=== PATIENT | male | born 1960 | race Caucasian/White ===

== ENCOUNTER → 2020-09-07 | Outpatient (CLI) | payer BC, OTHER ==
--- NOTE | 2020-09-07 12:45 | REPPI ---
INDICATION: elevated PSA. COMPARISON: None. TECHNIQUE: Transrectal prostate ultrasound performed, with ultrasound guidance provided for Dr. Li who performed ultrasound-guided biopsy. FINDINGS: Prostate measures 3.8 x 2.6 x 4.8 cm, total volume 24.9 mL. Echotexture is heterogeneous with scattered cysts and calcifications. There is a 5 mm nodule in the right mid prostate. Seminal vesicles appear symmetrical. IMPRESSION: Prostate ultrasound as above, ultrasound guidance was provided for Dr. Li who performed ultrasound-guided biopsy of the prostate. <Electronically signed by Orestes Santana > 09/07/20 [id number]
== END ==
LOC: M SMT PRO 10:25
PROVIDERS: ATTEND Urology
DX: C61 Malignant neoplasm of prostate (principal)
CPT/HCPCS: 55700; 76872; 76942; 88341; 88342; G0416

== ENCOUNTER → 2020-10-22 | Outpatient (CLI) | payer BC, OTHER ==
[~2020-10-22] MED LIST: ACET325C5 PO; CIAL2.5T PO; LIVA1TAB PO; LOPR50TA PO; PROTPAK PO
--- NOTE | 2020-10-22 11:59 | RADONC.CN ---
Radiation Oncology Hx/Consult Radiation Oncology Consult Date of Service: Oct 22, 2020 Pt Identifier Jaguar Bower is a 59 year old male with recent diagnosis of low risk prostate cancer cT2a Boody 3+3=6 (05/04 cores+) PSA 4.2. He has opted against active surveillance given an extremely strong family history of prostate cancer. He is seen for consideration of RT. Diagnosis/Treatment History Oncologic History Followed by Dr. Li for abnormal ÁNGEL and elevated screening PSA ÁNGEL right sided small nodule PSA 08/07/15 1.2 06/18/20 3.6 08/12/20 4.2 09/07/20 TRUS biopsy Greyson 3+3=6 right mid 05/04 cores+ 5% of single core IPSS 13 TONY 6 Patient has also undergone recent workup for enlarged mediastinal LN detected on CXR, biopsy showing histoplasmosis (Carmen Ingram) Interval History Feels well. Minimal voiding difficulties limited to daytime frequency and 2x nocturia. No urinary meds currently. He has severe ED longstanding. Cialis somewhat helpful Past Medical History: Afib on blood thinner GERD HPL HTN Past Surgical History: Right shoulder surgey 2000 Mediastinal biopsy 10/20/20 Family History: Mother brain cancer Brother prostate cancer Brother prostate cancer Brother lung cancer Sister ovarian cancer Social History: Never smoker Drinks 1-2 drinks 1-2 days per week History of occupation asbestos exposure Allergies / Meds Home Meds Reported Medications Pitavastatin Calcium (Livalo) 1 Mg Tablet, 1 TAB PO DAILY for 30 Days, #30 TAB 10/22/20 Pantoprazole Sodium (Protonix) [address], 40 MG PO 10/22/20 Metoprolol/Hydrochlorothiazide (Lopressor Hct 50-25 Tablet) 1 Each Tablet, 1 TAB PO, TAB 10/22/20 Tadalafil (Cialis) 2.5 Mg Tablet, 2.5 MG PO DAILY for erectile dysfunction for 30 Days, #30 TAB 10/22/20 Acetaminophen (Tylenol) 325 Mg Capsule, 325 MG PO, CAP 10/22/20 Review of Systems General: Reports: Normal Appetite Constitutional: Denies: Chills, Fever, Night Sweats Eyes: Denies: Pain, Vision change HEENT: Denies: Head Aches, Dysphagia, Sore Throat Skin: Denies: Rash, Lesions, Bruising Pulmonary: Denies: Dyspnea, Cough Cardiovascular: Denies: Chest Pain, Palpitations, Edema Gastrointestinal: Denies: Nausea, Vomiting, Abdominal Pain, Diarrhea Genitourinary: Denies: Dysuria, Frequency, Incontinence Hematologic: Denies: Bruising, Petecchia, Enlarged Lymph Nodes Musculoskeletal: Denies: Neck pain, Back pain Neurological: Denies: Weakness, Numbness, Incoordination Psych: Reports: Mood Normal; Denies: Memory Issues, Thoughts of Self Harm Vital Signs Ht 69" Wt 182 lbs BMI 27 T 97 P 68 RR 18 BP 154/83 O2 99% Pain 0 Fatigue 0 General Exam: Positive: Alert, Cooperative, No Acute Distress Eye Exam: Positive: PERRLA, EOMI ENT EXAM: Positive: Mucous membr. moist/pink, Pharynx Normal Neck Exam: Positive: Supple Chest Exam: Positive: Clear to auscultation, Other (Small mediastinoscopy incision healing) Heart Exam: Positive: Rate Normal Abdomen Exam: Positive: Soft Male Exam: Positive: Normal Sphincter Tone; Negative: Normal Prostate (Small right sided nodule, left side smooth 2+) Extremity Exam: Negative: Edema Neuro Exam: Positive: Normal Gait, Normal Speech, Cranial Nerves 3-12 NL Psych Exam: Positive: Mental status NL Diagnostic and Laboratory Diagnostic Review Radiologic images, relevant labs and pathology reports were personally reviewed and discussed with Mr. Bower. Assessment and Plan Impression Mr. Bower is a 59 year old male with a history of low risk prostate cancer cT2a Greyson 3+3=6 (1/12 cores+) PSA 4.2. He has opted against active surveillance given an extremely strong family history of prostate cancer. He is seen for consideration of RT. Stage Prostate cancer stage I cT1c Boody 3+3=6 (1/12 cores+) PSA 4.2 Performance Status ECOG 0 Plan We had an extensive discussion with Mr. Bower regarding the diagnosis at hand and available therapeutic options. He has a strong family history of malignancy prostate and ovarian amongst them. This suggests BRCA possibly, I did not discuss genetic testing today, but can revisit later on. 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 I defer to Dr. Yao Ingram on the point of management of this, but I did review the pathology report with them to provide basic information and reassurance that the pathological findings are against malignancy. With respect to his prostate cancer he is resolute about seeking treatment given his family history. He does not want active surveillance despite the NCCN recommendation for this. As he desires treatment, I recommended SBRT 36.25 Gy in 5 fractions with VMAT. I also discussed SpaceOAR and fiducial marker placement prior to SBRT to mitigate the risk of acute and late rectal toxicity. He desires to proceed with SBRT and SpaceOAR. We discussed the logistics of receiving radiation therapy in detail including the need for a 1-time planning session. This occurs 1-2 weeks post procedure. We reviewed the side effects of treatment including fatigue, irritative voiding symptoms and acute land late GI symptoms After discussing the risks, benefits and alternatives to radiation therapy, Mr. Bower was amenable to pursuing radiotherapy. All questions were answered to the patient's satisfaction. We instructed the patient that if there were any questions,concerns or changes in clinical status in the interim to contact us. Recommendations SBRT 36.25 Gy in 5 fractions SpaceOAR/fiducial marker placement Simulation 1-2 weeks post procedure Billing Statement Total time of [45] minutes was spent preparing for the visit [2], obtaining HPI [8], examining the patient [2], reviewing diagnostic tests [3], discussing management options [18], coordinating care [2], and writing this note [10]. CARLTON CARRASCO MD Oct 22, 2020 11:59
== END ==
LOC: M ONCR 10:04
PROVIDERS: ATTEND General Practice
DX: C61 Malignant neoplasm of prostate (principal); E78.5 Hyperlipidemia, unspecified; I10 Essential (primary) hypertension; I48.91 Unspecified atrial fibrillation; K21.9 Gastro-esophageal reflux disease without esophagitis; Z79.01 Long term (current) use of anticoagulants; Z80.0 Family history of malignant neoplasm of digestive organs; Z80.3 Family history of malignant neoplasm of breast; Z80.41 Family history of malignant neoplasm of ovary

== ENCOUNTER → 2020-11-25 | Outpatient (CLI) | payer BC, OTHER ==
[~2020-11-25] MED LIST changes: +CIPR750T2 PO; +LIDOCAINE 2% MDV 20ML VIAL XX ONE; +LIDOCAINE VISCOUS 2% SOLN 15ML UDC XX ONE; +LORA1TAB4 PO
--- NOTE | 2020-11-25 10:17 | ROOPDOC ---
[facility] Report Of Operation Report of Operation [facility] Radiation Oncology SpaceOAR & fiducial marker procedure note Name: Jaguar BowerGrabielB: 56 Procedure diagnosis: C61.0 Prostate cancer Procedure date/time: 11/25/20 930 Physician: Carlton Carrasco MD Implant(s): Fiducials (2 seeds per needle): Qfix [id number] Lot# [id number] Exp 09/21/2023 Qty 1 SpaceOAR: [id number] Lot# [id number] Exp 03/05/22 Qty 1 Description of procedure: Informed consent for placement of SpaceOAR and fiducial marker seeds (4) was obtained pre-procedure. A timeout was completed. The patient was placed in the high lithotomy position and a rectal exam with 2% viscous lidocaine was completed. The rectal vault was empty of stool. A chlorhexidine prep of the perineal skin was completed. The trans-rectal ultrasound probe was introduced, the prostate and the rectal bulb were well visualized. 2% lidocaine was infiltrated in the skin and soft tissues of the perineum via a 23 Ga spinal needle under ultrasound guidance. 10cc of local was used. Patient tolerated the block well. Next, fiducial marker seeds were placed via pre-loaded 18 Ga needles under ultrasound guidance. 2 seeds were placed at the right posterior base and apex, respectively. A hydro-dissection of the space between the prostate and rectum was conducted by locating Denonvilliers fascia and injecting 10 cc of isotonic saline through an 18 Ga needle into the poten tial space there to develop a plane for SpaceOAR implant. Once the hydro- dissection was complete, the needle was withdrawn to mid-gland and the implant needle was then checked in the sagittal and transverse planes for optimal position and once verified, the SpaceOAR implant was placed. The implant was noted to have excellent positioning from base to near-apex. The needle was withdrawn and the ultrasound probe was removed from the rectum. Post procedure vital signs were WNL. The patient tolerated the procedure well without significant discomfort. EBL: <1cc Disposition: Simulation for radiation therapy will occur in the next 1-2 weeks The patient will complete antibiotic prophylaxis this evening CARLTON CARRASCO MD Nov 25, 2020 10:17
== END ==
LOC: M ONCR 08:58
PROVIDERS: ATTEND General Practice
DX: C61 Malignant neoplasm of prostate (principal)
CPT/HCPCS: 55874; 55876; A4648; C1889

== ENCOUNTER 2020-12-09 10:15 | Outpatient (RCR) | payer BC, OTHER ==
[~2020-12-09 10:15] MED LIST changes: -LIDOCAINE 2% MDV 20ML VIAL XX ONE; -LIDOCAINE VISCOUS 2% SOLN 15ML UDC XX ONE
== END 2020-12-21 ==
LOC: M ONCR 10:15
PROVIDERS: ATTEND General Practice
DX: C61 Malignant neoplasm of prostate (principal)

== ENCOUNTER 2020-12-29 09:49 | Outpatient (RCR) | payer BC, OTHER ==
[2020-12-29] MEDS ORDERED: AZO-95TA3 PO (13:11)
== END 2021-01-20 ==
LOC: M ONCR 09:49
PROVIDERS: ATTEND General Practice
DX: C61 Malignant neoplasm of prostate (principal)

== ENCOUNTER 2021-04-07 10:00 | Outpatient (RCR) | payer BC, OTHER | END 2021-04-22 | LOC: M ONCM 10:00 → M ONCR 10:00 | PROVIDERS: ATTEND General Practice | DX: C61 Malignant neoplasm of prostate (principal) | CPT/HCPCS: 36415; 84153; G0463 ==

== ENCOUNTER → 2021-04-07 | Outpatient (CLI) | payer BC, OTHER ==
[~2021-04-07] MED LIST changes: +AZO-95TA3 PO
== END ==
LOC: M ONCR 09:26
PROVIDERS: ATTEND General Practice
DX: C61 Malignant neoplasm of prostate (principal); Z80.42 Family history of malignant neoplasm of prostate; Z92.3 Personal history of irradiation; Z88.5 Allergy status to narcotic agent; Z79.899 Other long term (current) drug therapy
CPT/HCPCS: 36415; 84153; G0463

== ENCOUNTER → 2021-10-06 | Outpatient (CLI) | payer BC, OTHER ==
[~2021-10-06] MED LIST changes: +TAMS1CAP17 PO
== END ==
LOC: M ONCR 09:55
PROVIDERS: ATTEND General Practice
DX: C61 Malignant neoplasm of prostate (principal); R30.0 Dysuria; R39.11 Hesitancy of micturition; Z79.899 Other long term (current) drug therapy; Z80.42 Family history of malignant neoplasm of prostate; Z92.3 Personal history of irradiation; Z88.5 Allergy status to narcotic agent
CPT/HCPCS: 84403; G0103; G0463

== ENCOUNTER → 2022-04-07 | Outpatient (CLI) | payer BC, OTHER ==
[2022-04-07 11:22] LABS: PROSTATIC SPECIFIC AG MONITOR 0.49 NG/ML (< 4.00)
== END ==
LOC: M ONCR 09:47
PROVIDERS: ATTEND General Practice
DX: C61 Malignant neoplasm of prostate (principal); Z77.090 Contact with and (suspected) exposure to asbestos; Z79.899 Other long term (current) drug therapy; Z80.42 Family history of malignant neoplasm of prostate; Z88.5 Allergy status to narcotic agent; Z92.3 Personal history of irradiation
CPT/HCPCS: 36415; 84153; 84403; G0463

== ENCOUNTER → 2022-10-06 | Outpatient (CLI) | payer BC, OTHER ==
[~2022-10-06] MED LIST changes: +LORA1TAB23 PO; -LORA1TAB4 PO
== END ==
LOC: M ONCR 09:53
PROVIDERS: ATTEND General Practice
DX: C61 Malignant neoplasm of prostate (principal); Z92.3 Personal history of irradiation; Z80.42 Family history of malignant neoplasm of prostate; Z71.2 Person consulting for explanation of examination or test findings; Z77.090 Contact with and (suspected) exposure to asbestos; Z79.899 Other long term (current) drug therapy; Z88.5 Allergy status to narcotic agent

== ENCOUNTER → 2023-10-09 | Outpatient (CLI) | payer BC, MEDICARE | LOC: M ONCR 09:43 | PROVIDERS: ATTEND General Practice | DX: C61 Malignant neoplasm of prostate (principal); N52.35 Erectile dysfunction following radiation therapy; Z71.2 Person consulting for explanation of examination or test findings; Z80.42 Family history of malignant neoplasm of prostate; Z92.3 Personal history of irradiation; Z77.090 Contact with and (suspected) exposure to asbestos; Z88.5 Allergy status to narcotic agent; Z79.899 Other long term (current) drug therapy | CPT/HCPCS: 84153; G0463 ==